=== PATIENT | female | born 1945 | race Caucasian/White ===

== ENCOUNTER 2017-06-09 17:11 | Emergency (ER) | payer OTHER, BC ==
[2017-06-09] MEDS ORDERED: LIDOCAINE 5% TOPICAL PATCH TP ONE ×2 (17:30→17:37)
[2017-06-09] MEDS ORDERED: traMADol HCL 50 MG TABLET PO ONE (17:30)
[2017-06-09 17:33] VITALS: BP 158/79; PULSE 62; TEMP 98; BMI 41.9
--- NOTE | 2017-06-09 17:37 | PDOC ---
History of Present Illness - General Chief Complaint: Back Pain Stated Complaint: BACK PAIN Time Seen by Provider: 06/09/17 17:18 History Source: Patient - History of Present Illness Occurred: reports: other Severity: reports: severe Pain Location: reports: back Past History - Past Medical History Allergies/Adverse Reactions: Allergies Allergy/AdvReac Type Severity Reaction Status Date / Time Penicillins Allergy Verified 06/09/17 17:33 Home Medications: Ambulatory Orders Oxycodone HCl/Acetaminophen [Percocet 5-325 mg Tablet -] 1 tab PO Q6H PRN #10 tablet 08/11/15 Cyclobenzaprine HCl [Flexeril -] 10 mg PO HS #7 tablet 06/09/17 GI Disorders: Yes (CELIAC) - Surgical History Cholecystectomy: Yes - Suicide/Smoking/Psychosocial Hx Smoking Status: No Smoking History: Never smoked Number of Cigarettes Smoked Daily: 0 Hx Alcohol Use: Yes (OCCASIONALLY) Drug/Substance Use Hx: No Review of Systems - Review of Systems Constitutional: No: Chills, Fever Musculoskeletal: Yes: Back Pain Neurological: No: Numbness, Tingling, Weakness *Physical Exam - Physical Exam General Appearance: Yes: Appropriately Dressed, Severe Distress HEENT: positive: Normal Voice Neck: positive: Supple Respiratory/Chest: negative: Respiratory Distress Gastrointestinal/Abdominal: positive: Soft. negative: Tender Musculoskeletal: positive: Vertebral Tenderness (to R lower back). negative: CVA Tenderness Extremity: positive: Normal Inspection Integumentary: positive: Dry, Warm Neurologic: positive: Fully Oriented, Alert, Normal Mood/Affect, Motor Strength 5/5 Heart Score/ECG Review - ECG Intrepretation Comment:: 06/09/17 18:48 NSR @ 64 bpm w/ LVH ED Treatment Course - LABORATORY CBC & Chemistry Diagram: 06/09/17 18:00 06/09/17 18:00 - RADIOLOGY Radiology Studies Ordered: Category Date Time Status LUMBAR SPINE CT W/O CONTRAST [CT] Stat CT Scan 06/09/17 17:28 Ordered Medical Decision Making - Medical Decision Making 06/09/17 17:31 71 yo morbidly obesed female w/ h/o R sciatica, f/u with neuro and pain management, s/p PT but states it did not help and currently receiving "injections" from pain management every several months, due for injection next month, here w/ worsening of her back pain x several days. Pain located to mid back and radiates to right thigh, sharp, constant and worse with any movement. Also complaining of numbness to her right thigh that is not new. Denies recent trauma. No lower extremity weakness, bladder or bowel incontinence or saddle anesthesia. Patient states she was given a rx for percocet by her pain management doctor and states her daughter stole most of it but that she had 1 left and took it last night w/ some relief. States her neurologist is planning on sending her for a CT scan in the near future. 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 No vertigo, SANCHEZ, visual changes, focal weakness, CP or SOB. Chest/lungs clear and non-focal in ED. Will check labs and EKG 06/09/17 17:43 06/09/17 18:53 Signed out to CARLOTA Madison a/w CT read and reassessment *DC/Admit/Observation/Transfer Diagnosis at time of Disposition: Back pain with sciatica - Discharge Dispostion Disposition: HOME - Prescriptions Prescriptions: Cyclobenzaprine HCl [Flexeril -] 10 mg PO HS #7 tablet - Referrals Referrals: Jesusita Marshall [Primary Care Provider] - Tim Medel MD [Staff Physician] - Traci Mcwilliams MD [Non Staff, Medical] - - Patient Instructions Printed Discharge Instructions: DI for Back Pain With Sciatica Additional Instructions: Please take medications as prescribed; avoid taking gabapentin and cyclobenzaprine at the same time. Per the tool repairer bench's labels, both medications are gluten-free. You may continue taking Motrin for pain relief as well. As discussed, you must follow up with orthopedics and the divemaster to discuss further treatment of your sciatica - referrals have been provided. If you develop any loss of bowel or bladder function, loss of sensation to your legs, worsening pain, or any new or worsening symptoms, please return to the ER.
[2017-06-09] MEDS ORDERED: traMADol HCL 50 MG TABLET ONE (18:01)
[2017-06-09] MEDS ORDERED: LIDOCAINE 5% TOPICAL PATCH ONE (18:01)
[2017-06-09 18:12] LABS: BASOPHIL 0.8 % (0-2.0); EOSINOPHIL 1.2 % (0-4.5); MCH 32.3 pg (25.7-33.7); MCHC 34.8 g/dl (32.0-36.0); MEAN CELL VOLUME 92.9 fl (80-96); MEAN PLT VOLUME 8.2 fl (7.5-11.1); NEUTROPHILS 76.9 % (42.8-82.8); PLATELET COUNT 234 K/MM3 (134-434); RDW 13.2 % (11.6-15.6); WHITE BLOOD COUNT 9.4 K/mm3 (4.0-10.0)
[2017-06-09] MEDS ORDERED: morphine CARPU-JECT 4 MG/1 ML DISP.SYRIN IM ONE (18:14)
[2017-06-09 18:36] LABS: ALBUMIN 3.9 g/dl (3.4-5.0); ANION GAP 6 (8-16); BILIRUBIN,TOTAL 0.7 mg/dL (0.2-1.0); CALCIUM 9.2 mg/dL (8.5-10.1); CO2 29 mmol/L (21-32); CREATININE 0.5 mg/dL (0.55-1.02); GLUCOSE,RANDOM 133 mg/dL (74-106); SGPT/ALT 35 U/L (12-78); TOT PROT 7.7 g/dl (6.4-8.2)
[2017-06-09 18:38] LABS: ALK PHOS 94 U/L (45-117); CPK 88 IU/L (26-192); TROPONIN I < 0.02 ng/ml (0.00-0.05)
[2017-06-09 18:39] LABS: SGOT/AST 28 U/L (15-37)
[2017-06-09] MEDS ORDERED: ONDANSETRON 4 MG/2 ML VIAL IVPUSH ONE ×2 (18:46→21:17)
[2017-06-09] MEDS ORDERED: morphine CARPU-JECT 4 MG/1 ML DISP.SYRIN IVPUSH ONE (18:47)
--- NOTE | 2017-06-09 19:26 | PDOC ---
*Physical Exam - Vital Signs Last Vital Signs Temp Pulse Resp BP Pulse Ox 98.0 F 62 18 158/79 95 06/09/17 17:11 06/09/17 17:11 06/09/17 17:11 06/09/17 17:11 06/09/17 17:11 - Physical Exam Comments: 06/09/17 19:26 Sign-out received from outgoing ER provider Rin. Pt interviewed and examined. Ancillary studies reviewed. Awaiting CT results. 06/09/17 21:04 CT results: Minimal anterolisthesis of L4 over L5 and minimal retrolisthesis of L2 over L3. L2-L3 mild degenerative vacuum phenomena. L3-L4 mild disc bulge reaching both L3 nerve roots, right more than left. Cannot rule out impingement of the right. Moderate degenerative spine stenosis. L4-L5 mild disc bulge reaching right L4 nerve root with moderate degenerative spinal canal stenosis. L5-S1 minimal broad-based disc bulge with marked bilateral facet hypertrophy. Read by: Colby Hancock MD. Engaged in length conversation with patient regarding HPI. Patient states she has been prescribed gabapentin for nerve pain previously and has it at home, but has not taken it due to concern for gluten allergy. Patient states she has seen orthopedist and had difficulty securing appointment but does have follow up with "[facility] center", where she was referred by Dr. Braun, on June 26. Advised patient she needs to follow up with ortho and spine center. Will provide referral to different ortho as requested as well as PMR MD. Advised patient to take gabapentin for neuropathy as sports medicine trainer information states there is no gluten in product. Will rx cyclobenzaprine for pm use. ED Treatment Course - LABORATORY CBC & Chemistry Diagram: 06/09/17 18:00 06/09/17 18:00 - ADDITIONAL ORDERS Additional order review: Laboratory Results 06/09/17 18:00 Sodium 138 Potassium 4.2 Chloride 103 Carbon Dioxide 29 Anion Gap 6 L BUN 16 D Creatinine 0.5 L Creat Clearance w eGFR > 60 Random Glucose 133 H Calcium 9.2 Total Bilirubin 0.7 D AST 28 D ALT 35 Alkaline Phosphatase 94 Creatine Kinase 88 Troponin I < 0.02 Total Protein 7.7 Albumin 3.9 06/09/17 18:00 RBC 4.28 MCV 92.9 MCHC 34.8 RDW 13.2 MPV 8.2 Neutrophils % 76.9 Lymphocytes % 15.6 D Monocytes % 5.5 Eosinophils % 1.2 Basophils % 0.8 - Medications Given in the ED: ED Medications Discontinued Medications Generic Name Dose Route Start Last Admin Trade Name Tracy PRN Reason Stop Dose Admin Lidocaine 1 patch 06/09/17 17:30 06/09/17 17:40 Lidoderm Patch - TP 06/09/17 17:31 Not Given ONCE ONE Lidocaine 1 patch 06/09/17 17:37 06/09/17 18:09 Lidoderm Patch - TP 06/09/17 17:38 1 patch ONCE ONE Administration Morphine Sulfate 4 mg 06/09/17 18:14 06/09/17 18:28 Morphine Injection - IM 06/09/17 18:15 Not Given ONCE ONE Tramadol HCl 50 mg 06/09/17 17:30 06/09/17 18:08 Ultram - PO 06/09/17 17:31 50 mg ONCE ONE Administration *DC/Admit/Observation/Transfer Diagnosis at time of Disposition: Back pain with sciatica - Discharge Dispostion Disposition: HOME Condition at time of disposition: Improved Admit: No - Prescriptions Prescriptions: Cyclobenzaprine HCl [Flexeril -] 10 mg PO HS #7 tablet - Referrals Referrals: Jesusita Marshall [Primary Care Provider] - Tim Medel MD [Staff Physician] - Traci Mcwilliams MD [Non Staff, Medical] - - Patient Instructions Printed Discharge Instructions: DI for Back Pain With Sciatica Additional Instructions: Please take medications as prescribed; avoid taking gabapentin and cyclobenzaprine at the same time. Per the sports medicine trainer's labels, both medications are gluten-free. You may continue taking Motrin for pain relief as well. As discussed, you must follow up with orthopedics and the sales representative education courses to discuss further treatment of your sciatica - referrals have been provided. If you develop any loss of bowel or bladder function, loss of sensation to your legs, worsening pain, or any new or worsening symptoms, please return to the ER.
[2017-06-09] MEDS ORDERED: ONDANSETRON 4 MG/2 ML VIAL ONE ×2 (19:30→21:21)
[2017-06-09] MEDS ORDERED: morphine CARPU-JECT 2 MG/1 ML DISP.SYRIN ONE ×2 (19:30→21:21)
[2017-06-09] MEDS ORDERED: morphine CARPU-JECT 2 MG/1 ML DISP.SYRIN IVPUSH ONE (20:29)
[2017-06-09] MEDS ORDERED: LIDOCAINE PATCH REMOVAL MC SCH ×2 (22:00)
--- NOTE | 2017-06-10 13:20 | EKG ---
Test Reason : Blood Pressure : / mmHG Vent. Rate : 064 BPM Atrial Rate : 064 BPM P-R Int : 166 ms QRS Dur : 096 ms QT Int : 404 ms P-R-T Axes : 019 -38 036 degrees QTc Int : 416 ms POOR DATA QUALITY, INTERPRETATION MAY BE ADVERSELY AFFECTED NORMAL SINUS RHYTHM BASE LINE ARTIFACTS. LEFT ANTERIOR FASCICULAR BLOCK MODERATE VOLTAGE CRITERIA FOR LVH, MAY BE NORMAL VARIANT PROBABLE ATRIAL ABNORMALITY ABNORMAL ECG NO PREVIOUS ECGS AVAILABLE REPEAT EKG IF CLINICALLY INDICATED Confirmed by WESLY LONGORIA MD ([id number]) on 06/10/2017 1:19:34 PM Referred By: Confirmed By:WESLY LONGORIA MD
== END 2017-06-09 21:43 | disposition home or self-care (01) ==
LOC: JER 17:11
DX: M54.41 Lumbago with sciatica, right side (principal); E66.01 Morbid (severe) obesity due to excess calories; Z68.41 Body mass index [BMI] 40.0-44.9, adult
CPT/HCPCS: 36415; 72131-TC; 80053; 84484; 85025; 93005; 93010; 99281-25